=== PATIENT | male | born 1975 | race Caucasian/White ===

== ENCOUNTER 2017-01-02 13:33 | Emergency (ER) | payer SELFPAY ==
[2017-01-02 13:49] VITALS: BP 129/81
--- NOTE | 2017-01-02 14:31 | UC ---
Dental HPI - HPI Summary HPI Summary: Patient bit on a piece of popcorn broke the 1st molar on the left upper jaw. - History of Current Complaint Chief Complaint: UCDentalProblem Stated Complaint: DENTAL PAIN Time Seen by Provider: 01/02/17 14:17 Hx Obtained From: Patient Onset/Duration: Sudden Onset, Lasting Hours Severity: Moderate Aggravating: Chewing Alleviating: Nothing Related History: Previous Dental Care on Same Tooth, Swelling - Allergies/Home Medications Allergies/Adverse Reactions: Allergies Allergy/AdvReac Type Severity Reaction Status Date / Time No Known Allergies Allergy Verified 01/02/17 13:49 PMH/Surg Hx/FS Hx/Imm Hx Previously Healthy: Yes Other History Of: Negative For: HIV, Hepatitis B, Hepatitis C, Anticoagulant Therapy - Surgical History Surgical History: None - Family History Known Family History: Positive: Cardiac Disease - Social History Alcohol Use: Rare Substance Use Type: None Smoking Status (MU): Heavy Every Day Tobacco Smoker Type: Cigarettes Amount Used/How Often: 1ppd Have You Smoked in the Last Year: Yes Review of Systems Constitutional: Negative Skin: Negative Eyes: Negative ENT: Dental Pain Respiratory: Negative Cardiovascular: Negative Gastrointestinal: Negative Genitourinary: Negative Motor: Negative Neurovascular: Negative Musculoskeletal: Negative, Edema Neurological: Negative Psychological: Negative All Other Systems Reviewed And Are Negative: Yes Physical Exam Triage Information Reviewed: Yes Appearance: Well-Appearing, Well-Nourished, Pain Distress Vital Signs: Initial Vital Signs Temp 98.9 F 01/02/17 13:42 Pulse 83 01/02/17 13:42 Resp 16 01/02/17 13:42 BP 129/81 01/02/17 13:42 Pulse Ox 97 01/02/17 13:42 Vital Signs Reviewed: Yes Eye Exam: Normal Eyes: Positive: Conjunctiva Clear ENT Exam: Normal ENT: Positive: Hearing grossly normal, Pharynx normal, TMs normal Dental: Positive: Dental Fracture @ - upper left jow, swelling of the left side of the face Neck exam: Normal Neck: Positive: Supple, Nontender Respiratory Exam: Normal Respiratory: Positive: Chest non-tender, Lungs clear, Normal breath sounds Cardiovascular Exam: Normal Cardiovascular: Positive: RRR, No Murmur, Pulses Normal Abdominal Exam: Normal Abdomen Description: Positive: Nontender, No Organomegaly, Soft Bowel Sounds: Positive: Present Musculoskeletal Exam: Normal Musculoskeletal: Positive: Strength Intact, ROM Intact, No Edema Neurological Exam: Normal Neurological: Positive: Alert, Muscle Tone Normal Psychological Exam: Normal Skin Exam: Normal Dental Complaint Course/Dx - Course Course Of Treatment: hx obtained, exam performed, meds reviewed, given meds for dental fracture - Differential Dx/Diagnosis Differential Diagnosis/Dx: Dental Abscess, Dental Caries, Fractured Tooth, Maxillary Trauma, Peridontic Disease Provider Diagnoses: dental fracture. abcess of molar Discharge - Discharge Plan Condition: Stable Disposition: HOME Prescriptions: Penicillin VK TAB 500 MG(NF) [Penicillin VK 500 mg Tab(NF)] 500 mg PO QID #28 tab Patient Education Materials: Toothache (ED) Referrals: Non Staff,Doctor [Primary Care Provider] - Additional Instructions: take the medication as prescribed. FOllow up with your dentist. Ibuprofen 600 mg every 6 hours for pain. warm compresses to the side of the face for swelling and pain.
== END 2017-01-02 14:39 | disposition home or self-care (01) ==
LOC: UCCORT 13:33
DX: S02.5XXA Fracture of tooth (traumatic), initial encounter for closed fracture (principal); K04.7 Periapical abscess without sinus; F17.210 Nicotine dependence, cigarettes, uncomplicated; W22.8XXA Striking against or struck by other objects, initial encounter; Y93.89 Activity, other specified; Y92.9 Unspecified place or not applicable
CPT/HCPCS: 99212; G0463